=== PATIENT | female | born 1995 | race Two or more races ===

== ENCOUNTER 2017-03-10 17:30 | Emergency (ER) | payer OTHER ==
[~2017-03-10] VITALS: Ht 154.9 cm; Wt 74.8 kg
[2017-03-10 18:15] VITALS: BP 127/83
== END 2017-03-10 23:50 | disposition left against medical advice (07) ==
LOC: ER 17:40
DX: R51 Headache (principal); R05 Cough; J02.9 Acute pharyngitis, unspecified; Z53.21 Procedure and treatment not carried out due to patient leaving prior to being seen by health care provider